=== PATIENT | female | born 1955 | race Caucasian/White ===

== ENCOUNTER → 2016-07-04 | Outpatient (CLI) | payer BC ==
[~2016-07-04] MED LIST: BIOTIN10000 MC1 PO; CITRACAL + D CA1 TAB PO; MULTI VITAMINS1 TAB PO; PROSCAR 5MG5 MG
== END ==
LOC: COL.RAD 08:14
DX: R31.29 Other microscopic hematuria (principal); Z90.5 Acquired absence of kidney

== ENCOUNTER → 2017-02-02 | Outpatient (CLI) | payer BC | LOC: MC.RAD 09:00 | DX: Z12.31 Encounter for screening mammogram for malignant neoplasm of breast (principal) ==

== ENCOUNTER → 2017-02-09 | Outpatient (CLI) | payer BC | LOC: MC.RAD 09:30 | DX: N64.89 Other specified disorders of breast (principal); R92.2 Inconclusive mammogram ==

== ENCOUNTER → 2018-02-12 | Outpatient (CLI) | payer BC | LOC: MC.RAD 09:00 | DX: Z12.31 Encounter for screening mammogram for malignant neoplasm of breast (principal) ==

== ENCOUNTER → 2018-11-04 | Outpatient (CLI) | payer BC | LOC: COL.VAS 08:28 | DX: I65.23 Occlusion and stenosis of bilateral carotid arteries (principal) ==

== ENCOUNTER → 2019-03-03 | Outpatient (CLI) | payer BC | LOC: MC.RAD 11:04 | DX: Z12.31 Encounter for screening mammogram for malignant neoplasm of breast (principal); Z98.82 Breast implant status ==

== ENCOUNTER → 2020-03-16 | Outpatient (CLI) | payer MEDICARE, BC | LOC: MC.RAD 03-04 09:30 | DX: Z12.31 Encounter for screening mammogram for malignant neoplasm of breast (principal); Z98.82 Breast implant status ==

== ENCOUNTER → 2020-03-16 | Outpatient (CLI) | payer MEDICARE, BC | LOC: COL.VAS 03-04 14:15 | DX: I65.23 Occlusion and stenosis of bilateral carotid arteries (principal) ==

== ENCOUNTER → 2020-03-24 | Outpatient (CLI) | payer MEDICARE, BC | LOC: MC.RAD 14:00 | DX: N64.89 Other specified disorders of breast (principal) ==

== ENCOUNTER → 2021-03-25 | Outpatient (CLI) | payer MEDICARE, BC | LOC: MC.RAD 12:50 | DX: Z12.31 Encounter for screening mammogram for malignant neoplasm of breast (principal) ==

== ENCOUNTER → 2023-06-14 | Outpatient (CLI) | payer MEDICARE, BC | LOC: MC.RAD 10:30 | DX: Z12.31 Encounter for screening mammogram for malignant neoplasm of breast (principal) ==